=== PATIENT | male | born 1995 | race African-American/Black ===

== ENCOUNTER 2017-08-09 08:56 | Outpatient (CLI) | payer OTHER ==
--- NOTE | 2017-08-09 15:29 | MRI ---
MRI OF BILATERAL KNEES AND MRA AND MRV OF BOTH KNEES PERFORMED WITHOUT COTNRAST ENHANCEMENT: Images were obtained in both dorsi and plantar flexion. TECHNIQUE: 1. Axial T1 images were performed in dorsiflexion, these are axial images of series #3 and coronal images of series #4. Plantar flexion Axial images are series #8. 2. MRA was obtained in both dorsiflexion which is series #100 and plantar flexion which is series # 101. The MRV was obtained in plantar flexion series 102. FINDINGS: The axial images show a normal position of the popliteal artery and vein between the medial and late ral heads of the gastrocnemius muscle. On the left side, there is what is felt to be a 3rd head of the gastrocnemius muscle which is enlarg ed as compared to the right side. I think that this is less likely to be a hypertrophied portion of the lateral head. It appears to attach along the lateral side of the femoral shaft. It does not c ross midline and I do not see a definite anomalous slip that extends between the artery and vein. On the right side, there is a similar finding with what is felt to be a 3rd head of the gastrocnemiu s which is smaller as compared to the left side. Again, the attachment is along the posterior and l ateral margin of the distal femur. The medial head of both gastrocnemius muscles appears to have a fairly normal attachment to the femu r. The MRA and MRV portions of the examination show a fairly normal-appearing popliteal artery in both plantar and dorsiflexion. There is a tiny focal area of narrowing seen in the popliteal arteries in plantar flexion, but this is in an area of motion artifact and is felt to be related to motion. It is lower in position at the level more at the soleus muscle level and not at the gastrocnemius musc le level and is felt to be artifactual. There is compression of both popliteal veins which are fair ly markedly narrowed. No other muscle anomalies are demonstrated. These findings were reviewed with Dr. Branham and Dr. Villa and Dr. Navarrete. IMPRESSION: Compression of the popliteal vein bilaterally, both the popliteal artery and vein are in a normal po sition. Gastrocnemius muscles are somewhat hypertrophied and, as discussed above, there is what is felt to be 3rd heads of the gastrocnemius muscles bilaterally. No significant narrowing of either p opliteal artery is demonstrated in dorsiflexion or plantar flexion. No anomalous attachment of the medial head of the gastrocnemius is seen.
== END 2017-08-09 08:57 | disposition home or self-care (01) ==
LOC: MRI 08:56
PROVIDERS: ATTEND Orthopaedic Surgery Sports Medicine
DX: I77.89 Other specified disorders of arteries and arterioles (principal); M89.371 Hypertrophy of bone, right ankle and foot
CPT/HCPCS: C8913